=== PATIENT | male | born 1990 | race African-American/Black ===

== ENCOUNTER 2024-01-19 17:08 | Inpatient (IN) | payer OTHER, SELFPAY ==
[2024-01-19] VITALS (25 sets, daily range): BP systolic 117–211; BP diastolic 74–147; PULSE 58–111; RESP 12–30; TEMP 37.6; O2SAT 91–100; BMI 35.2
--- NOTE | 2024-01-19 17:09 | XRR_ITS ---
PROCEDURE INFORMATION: Exam: XR Chest Exam date and time: 01/19/2024 5:27 PM Age: 33 years old Clinical indication: Pain; Chest pressure; Additional info: Cp TECHNIQUE: Imaging protocol: Radiologic exam of the chest. Views: 1 view. COMPARISON: No relevant prior studies available. FINDINGS: Lungs: Unremarkable. No consolidation. Pleural spaces: Unremarkable. No pleural effusion. No pneumothorax. Heart/Mediastinum: Unremarkable. No cardiomegaly. Bones/joints: Unremarkable. XR/XR chest 1V portable [id number] IMPRESSION: No acute findings.
--- NOTE | 2024-01-19 17:09 | ECG_ITS ---
[facility] Test Date: 2024-01-19 Pat Name: Louis Brannon Department: Room: Gender: Male Top Polisher: : 1990 Requested By: Candelario Evans Order Number: [id number] Sarabjit MD: Neil Alexander M.D. Measurements Intervals [place] Rate: 81 P: 44 NE: 163 QRS: 66 QRSD: 90 T: 42 QT: 366 QTc: 427 Interpretive Statements SINUS RHYTHM ST ELEVATION, CONSIDER LATERAL INJURY [MARKED ST ELEVATION W/O NORMALLY INFLECTED T-WAVE IN I/aVL/V5/V6] ACUTE ND No previous ECG available for comparison Electronically Signed On 01-20-2024 9:09:49 CDT by Neil Alexander M.D. [email or web address])/store/[id number]
[2024-01-19] MEDS: clopidogrel 300 mg Tablet 600 MG PO (17:16)
[2024-01-19] MEDS: nitroglycerin 0.4 mg sublingual Tablet SUBLINGUAL (17:17)
[2024-01-19] MEDS: ondansetron 2 mg/ML SDV 2 mL 4 MG IVP (17:18)
[2024-01-19] MEDS: morphine 4 mg/mL SDV 1 mL IVP (17:18)
[2024-01-19] MEDS: heparin 5,000 unit/mL INJ 1 mL 4000 UNIT IVP (17:18)
--- NOTE | 2024-01-19 17:20 | ED_ITS ---
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 Rates his pain an 8 out of 10 Associated symptoms: Deny abdominal pain, dyspnea, fever(s), nausea or vomiting Review of Systems 2 Const: Denies: fever(s), chills, body aches or change in appetite ENMT: Denies: throat pain or dental pain Card: Reports: chest pain Resp: Denies: dyspnea GI: Denies: abdominal pain, nausea, vomiting or diarrhea Musc: Denies: neck pain or back pain Skin/Breast: Denies: rash Neuro: Denies: headache(s) Physical Exam 2 Const: COMMON NORMALS: patient oriented x3 GENERAL APPEARANCE: ill appearing and diaphoretic HENMT: COMMON NORMALS: normocephalic and atraumatic HEAD & SCALP: n ormocephalic and atraumatic Neck/C-Spine: COMMON NORMALS: full ROM and supple Chest: COMMONS NORMALS: normal inspection of the chest Resp: COMMON NORMALS: normal respiratory effort, No retractions, No use of accessory muscles and clear to auscultation bilaterally AUSCULTATION: clear to auscultation bilaterally Cardio: COMMON NORMALS: regular rate, regular rhythm and No murmurs present (Cardio) RATE: regular rate RHYTHM: regular rhythm Extremity: COMMON NORMALS: normal to inspection and full ROM Neuro: COMMON NORMALS: patient oriented x3, moves all extremities and no focal motor deficits Psych: COMMON NORMALS: mental status grossly normal, Normal thought process present and cooperative THOUGHT PROCESS: Normal thought process present Skin: COMMON NORMALS: no rashes or lesions noted and no wounds GENERAL SKIN EXAM: no rashes or lesions noted Course 2 Vital Signs: Vital signs: Vital Signs Pulse Rate 81 01/19/24 17:08 Respiratory Rate 23 H 01/19/24 17:18 Blood Pressure 211/147 01/19/24 17:08 Pulse Oximetry 98 01/19/24 17:18 Oxygen Delivery Me thod Room Air 01/19/24 17:08 MDM - Chest Pain Medical Decision Making Patient presents for chest pain EKG does show ST elevation consistent with a STEMI Fighting Vehicle Infantryman was alerted and will take patient to the Fighting Vehicle Infantryman. Medical Records I reviewed the patient's medical records. Lab Data I reviewed the patient's lab results. 01/19/24 17:05 01/19/24 17:05 All radiology interpretation(s) finalized by discharge Discharge Plan Discharge Patient Disposition: Admitted As Inpatient Clinical Impression: ST elevation myocardial infarction (STEMI) Condition: Stable Coding Level of Care Code ED Laundry Housekeeper for Jayy Dumont
[2024-01-19] MEDS: hyDRALAzine 20 mg/mL INJ 1 mL IVP (17:22)
[2024-01-19 17:23] LABS: Basophils # 0.1 10^3/uL (0.0-0.1); Basophils % 0.5 %; Eosinophils # 0.1 10^3/uL (0.0-0.8); Eosinophils % 0.6 %; Hematocrit 52.9 % (37-53); Lymphocytes # 6.5 10^3/uL (0.8-4.8); Lymphocytes % 26.7 %; Mean Corpuscular HGB Conc 34.2 g/dL (30-55); Mean Corpuscular Hemoglobin 29.9 pg (27-33); Mean Corpuscular Volume 87.4 fl (82-101); Mean Platelet Volume 10.3 fL (7.4-10.4); Monocytes # 1.9 10^3/uL (0.2-0.9); Monocytes % 7.8 %; Neutrophils # 15.26 10^3/uL (1.8-7.7); Neutrophils % 63.2 %; Nucleated Red Blood Cells % 0 %; Platelet Count 450 10^3/cmm (157-399); Red Blood Count 6.05 10^6/uL (3.85-5.65); Red Cell Distribution Width 12.2 % (12.1-15.1); White Blood Count 24.16 10^3/uL (3.29-11.43)
--- NOTE | 2024-01-19 17:36 | W.PM.OPSUD ---
Surgery/Procedure H&P Update DATE OF PROCEDURE: January 19, 2024
[2024-01-19 17:58] LABS: Alanine Aminotransferase 31 U/L (0-41); Albumin Level 5.4 g/dL (3.5-5.2); Alkaline Phosphatase 144 U/L (40-130); Anion Gap 30.8 (5-19); Aspartate Amino Transferase 37 U/L (0-40); Blood Urea Nitrogen 13 mg/dL (6-20); Calcium 11.7 mg/dL (8.5-10.5); Carbon Dioxide 15 mmol/L (22-29); Chloride 101 mmol/L (98-107); Creatinine Clr Calc Pharmacy 54.5067; Globulin 4.1 g/dL (1.3-4.6); Glomerular Filtration Rate 39.3 mL/min (90-130); Glucose 134 mg/dL (65-115); Osmolality Calculated 298 mOsm/kg (285-295); Potassium 3.8 mmol/L (3.5-5.1); Sodium 143 mmol/L (136-145); Total Bilirubin 0.6 mg/dL (0.15-1.2); Total Protein 9.5 g/dL (6.6-8.7)
[2024-01-19 17:59] LABS: Troponin(5th) Baseline 22 ng/L (0-15)
[2024-01-19 18:04] LABS: Slide Review Slide Review Perform
--- NOTE | 2024-01-19 18:06 | PC.NURSE ---
unable to obtain temperature on triage d/t acuity level/urgency of pt.
--- NOTE | 2024-01-19 18:24 | CTR_ITS ---
PROCEDURE INFORMATION: Exam: CTA Chest With Contrast Exam date and time: 01/19/2024 6:45 PM Age: 33 years old Clinical indication: Other: R/O dissection; Additional info: Cp R/O dissection TECHNIQUE: Imaging protocol: Computed tomographic angiography of the chest with contrast. Exam focused on the arteries. 3D rendering (Not supervised by radiologist): MIP and/or 3D reconstructed images were created by the technologist. Radiation optimization: All CT scans at this facility use at least one of these dose optimization techniques: automated exposure control; mA and/or kV adjustment per patient size (includes targeted exams where dose is matched to clinical indication); or iterative reconstruction. Contrast material: OMNI 350; Contrast volume: 100 ml; Contrast route: INTRAVENOUS (IV); COMPARISON: CR (CHEST, ) 01/19/2024 5:27 PM RADIATION DOSE METRICS: Total DLP (mGy-cm): 509 FINDINGS: Pulmonary arteries: Normal. No pulmonary emboli. Aorta: Unremarkable. No aortic aneurysm. No aortic dissection. Lungs: Unremarkable. No consolidation. No masses. Pleural spaces: Unremarkable. No pneumothorax. No pleural effusion. Heart: Unremarkable. No cardiomegaly. No pericardial effusion. Lymph nodes: Unremarkable. No enlarged lymph nodes. Bones/joints: Unremarkable. No acute fracture. Soft tissues: Unremarkable. CT/CT angio chest [id number] IMPRESSION: Negative for aortic dissection. No acute findings.
[2024-01-19] MEDS: iohexol 350 mg/mL 500 mL Btl (per mL) IV (18:56)
--- NOTE | 2024-01-19 19:03 | PM.HP ---
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 STEMI alert was called by EMS as patient EKG showed ST elevations in lateral leads. Transient elevation in anterior leads seen as well.Patient is going to cardiac Web Applications Administrator emergently. He is diaphoretic, have severe substernal chest pain. Review of Systems Const: Denies: fever(s), chills, body aches or change in appetite ENMT: Denies: throat pain or dental pain Card: Reports: chest pain Resp: Denies: dyspnea GI: Denies: abdominal pain, nausea, vomiting or diarrhea Musc: Denies: neck pain or back pain Skin/Breast: Denies: rash Neuro: Denies: headache(s) Medications/Allergies Allergies Allergy/AdvReac Type Severity Reaction Status Date / Time No Known Allergies Allergy Verified 01/19/24 17:25 Vitals/I&O/Wt Last Vital Signs Pulse 107 H 01/19/24 18:07 Resp 22 H 01/19/24 18:07 BP 183/123 01/19/24 18:07 Pulse Ox 98 01/19/24 18:07 O2 Del Method Nasal Cannula 01/19/24 17:29 O2 Flow Rate 2 01/19/24 17:29 Weight last 48 hrs Weight 240 lb Physical Exam Narrative: GENERAL: Patient is alert, awake and oriented x3. [] NECK: No jugular vein distension. [] HEENT: No cyanosis. No icterus. No pallor. [] HEART: Tachycardic, Regular S1 and S2. No murmur, rub or gallop. [] LUNGS: Clear to auscultate bilaterally. [] CENTRAL NERVOUS SYSTEM: Grossly nonfocal. [] EXTREMITIES: Lower extremities with 1+ edema bilaterally. Data 01/19/24 17:05 01/19/24 17:05 A&P Assessment and plan (1) ST elevation myocardial infarction (STEMI): (2) Hypertensive emergency: Plan Patient's presentation is concerning for ST elevation IL. We will emergently take him to cardiac Web Applications Administrator. Given aspirin, Plavix and heparin bolus. IV hydralazine given as blood pressure is over 200 mmHg If no significant coronary artery disease is found, next step will be to obtain emergent CTA. This will be to rule out aortic dissection. Thank you for involving us with care of this patient. We will continue to follow. Please call with questions. Attestations Medical Necessity Statement*: Care expected to cross 2 midnights. Patient has presented with hypertensive emergency with this elevation IL. Emergently going to cardiac Web Applications Administrator. Coding Level of Care Code Acute Code for [facility] Diagnoses ST elevation myocardial infarction (STEMI) I21.3 Hypertensive emergency I16.1
--- NOTE | 2024-01-19 19:09 | ECG_ITS ---
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 Measurements Intervals [place] Rate: 62 P: 30 ND: 166 QRS: 59 QRSD: 93 T: 18 QT: 409 QTc: 416 Interpretive Statements SINUS RHYTHM WITH SINUS ARRHYTHMIA ST ELEVATION, CONSIDER ANTEROLATERAL INJURY [MARKED ST ELEVATION W/O NORMALLY INFLECTED T-WAVE IN V3-V6] ACUTE CO Compared to ECG 01/19/2024 17:11:27 No significant changes Electronically Signed On 01-20-2024 9:10:35 CDT by Neil Alexander M.D. [id number]
--- NOTE | 2024-01-19 19:09 | PC.NURSE ---
Nausea Patient complaining of nausea. Dr. Alexander notified; order received for 2 mg zofran IVP once.
--- NOTE | 2024-01-19 19:11 | USCV_ITS ---
Louis Brannon Age: 33 Gender: M : 1990 Exam Date: 01/19/2024 22:18 Ordering Phys: Neil Alexander M.D ([email or web address]) Technologist: AXEL Exam Location: [facility] – [place] Indication: chest pain / assess LV function s/p STEMI s/p cardiac catheterization. BP: 211 / 147 HR: 64 Rhythm: Sinus Technical Quality: Adequate MEASUREMENTS (Male / Female) Normal Values 2D ECHO LV Diastolic Diameter PLAX 4.2 cm 4.2 - 5.9 / 3.9 - 5.3 cm IVS Diastolic Thickness 1.8 cm 0.6 - 1.0 / 0.6 - 0.9 cm IVS Systolic Thickness 1.7 cm LVPW Diastolic Thickness 1.5 cm 0.6 - 1.0 / 0.6 - 0.9 cm LVPW Systolic Thickness 2.1 cm LVOT Diameter 2.1 cm LV Ejection Fraction 2D Teich 63.2 % LV Ejection Fraction MOD 4C 70.5 % LV Ejection Fraction MOD 2C 59.2 % LV Ejection Fraction 2C AL 64.7 % LA Diameter 4.4 cm Aorta at Sinotubular Diameter 2.4 cm IVC Diameter 1.7 cm M-MODE LA Ao Ratio MM 1.1 AV Cusp Separation MM 2.1 cm DOPPLER AV Peak Velocity 140.0 cm/s LVOT Peak Velocity 110.0 cm/s AV Area Cont Eq vti 3.3 cm squared AV Area Cont Eq pk 2.7 cm squared MV Peak Velocity 81.0 cm/s MV Area PHT 3.7 cm squared Mitral E to A Ratio 0.9 TV Peak E Velocity 44.0 cm/s PV Peak Velocity 168.0 cm/s FINDINGS Left Ventricle Left ventricle is normal in size. LV systolic function is normal with EF 55 to 60%. No regional wall motion abnormalities are seen. In some views, apical wall appears dyskinetic however overall LV function is normal Right Ventricle Normal in size and function Right Atrium Normal in size Left Atrium Normal in size Mitral Valve Structurally normal mitral valve. Aortic Valve Structurally normal aortic valve. No significant stenosis or regurgitation. Tricuspid Valve Mild tricuspid regurgitation. Insufficient TR jet to calculate RVSP. Pulmonic Valve Not well visualized Pericardium Normal. Possible pleural effusion is seen. Aorta Normal in size IVC Appears to be normal CONCLUSIONS LV systolic function is normal with EF of 55-60% Mild tricuspid regurgitation Possible pleural effusion seen No comparison studies are available. Neil Alexander MD (Electronically Signed) Final Date: 20 January 2024 09:38 S
--- NOTE | 2024-01-19 19:23 | PM.CONSULT ---
Providers/Reason For Consult Consulting Physician/Specialty*: Dr. Alexander, interventional cardiology Reason for Consult*: Medical management Attending Physician: Neil Alexander M.D History of Present Illness History of Present Illness Louis Brannon is a 33 year old male with a past medical history significant for tobacco use disorder who presented as a code STEMI. Patient reports he was in his usual state of health until today around noon. 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 He notes that he was sweating while loading the truck but did not feel overheated. Reports that he was drinking water as well. Following this, he developed severe centralized chest pain. He rated the pain initially 10 out of 10. Denied any radiation. Denies any alleviating or aggravating factors. Initial EKG was concerning for STEMI. Patient was taken to the Shingle Shearing Machine Operator which was negative for culprit lesion. This was followed by a CT angiogram to evaluate for aortic dissection showed no acute findings. Upon presentation was also found to have severely elevated blood pressure. He is currently on a nitro drip. Denies a known history of hypertension. Labs revealed leukocytosis to 24.16. He endorses labile temperature sensation. Denies other infectious symptoms. Labs further revealed metabolic acidosis with bicarb of 15, elevated creatinine to 2.3, mild hypercalcemia at 11.7, elevated CK to 595, and elevated troponins. Patient denies known history of kidney disease. He reports his last labs were probably about a year ago. He states that he is a and typically has his labs done every 6 months but did miss his last lab check to being on the road. He denies any chronic medical conditions. Takes no prescription medications. Denies illicit drug use. Review of Systems Narrative: A complete review of systems was obtained and is negative except as stated in HPI. Medications/Allergies Allergies Allergy/AdvReac Type Severity Reaction Status Date / Time No Known Allergies Allergy Verified 01/19/24 17:25 PFSH Acute PFSH: Medical History (Updated 01/19/24 @ 21:11 by Thang Ceja MD) Tobacco use disorder Surgical History (Updated 01/19/24 @ 21:03 by Thang Ceja MD) No pertinent past surgical history Family History (Updated 01/19/24 @ 21:03 by Thang Ceja MD) Mother CAD (coronary artery disease) Social History (Updated 01/19/24 @ 21:04 by Thang Ceja MD) Smoking and tobacco/nicotine status: current every day tobacco/nicotine user Alcohol intake: never Substance/Drug Use: never Additional social history: 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 Lives in [place]. Holiday. Vitals/I&O/Wt Last Vital Signs Pulse 107 H 01/19/24 18:07 Resp 22 H 01/19/24 18:07 BP 183/123 01/19/24 18:07 Pulse Ox 98 01/19/24 18:07 O2 Del Method Nasal Cannula 01/19/24 17:29 O2 Flow Rate 2 01/19/24 17:29 Weight last 48 hrs Weight 108.862 kg Physical Exam Narrative: General: Patient is awake. In moderate distress. Head: Normocephalic. Atraumatic. EOM intact. Neck: No JVD. Cardiovascular: RRR. No gallops. No murmurs. No peripheral edema. Lungs: Clear to auscultation, no use of accessory muscles, no crackles or wheezes. Skin: No jaundice. No rashes. Abdomen: Normal bowel sounds, abdomen soft and nontender. Genito Urinary: Genital exam not performed since complaints not related. Rectal: Rectal exam not performed since no symptoms indicated blood loss. Extremities: No cyanosis or clubbing. Musculoskeletal: No swollen or erythematous joints. Neurological: Moves all 4 extremities. No myoclonus. Data 01/19/24 17:05 01/19/24 17:05 A&P Assessment and plan (1) Hypertensive emergency: Patient currently on nitro drip Plan to start oral antihypertensive Monitor blood pressure closely Control pain Check UDS (2) Elevated troponin: Presented as code STEMI Status postcardiac catheterization via right groin without culprit lesion CT angio negative for aortic dissection Patient has persistent chest pain On nitro drip Received morphine without significant response Trial of hydromorphone (3) Elevated serum creatinine: Patient denies known kidney disease Suspect component of dehydration Start aggressive IV fluid resuscitation Renally dose medications Strict I&Os Repeat labs in a.m. (4) Metabolic acidosis: HAGMA with bicarb of 15, lactate 2.5, AG 30.8 Aggressive IV fluid resuscitation as noted above Repeat labs in a.m. (5) Leukocytosis: Suspect stress-induced Evaluate for source of infection Urinalysis not consistent with infection Chest imaging negative for signs of infection Check procalcitonin Obtain blood cultures (6) Hypercalcemia: Start IVF Repeat labs in AM (7) Tobacco use disorder: Would benefit from cessation Plan Thank you for this consultation. Consult Attestations Medical Necessity Statement: Per Primary Coding Level of Care Code Acute Code for [facility] Diagnoses Hypertensive emergency I16.1 Elevated troponin R79.89 Elevated serum creatinine R79.89 Metabolic acidosis E87.20 Leukocytosis D72.829 Hypercalcemia E83.52 Tobacco use disorder F17.200
[2024-01-19] MEDS: ondansetron 2 mg/ML SDV 2 mL IVP (19:34)
--- NOTE | 2024-01-19 19:34 | PM.MISC ---
Miscellaneous Note Purpose of Documentation: Brief procedure/event note Note: No critical CAD seen on angiogram. Patient was taken emergently to CTA to rule out aortic dissection. None found. Likely his presentation is secondary to hypertensive emergency. He has been started on nitro drip and blood pressures have are improving. In the meanwhile labs have come back and his creatinine is 2.3 and WBC count is 24,000. We will consult medicine team to assist with medical management. Appreciate recommendations. We will obtain echocardiogram.
--- NOTE | 2024-01-19 19:45 | PC.NURSE ---
Sheath Order received from Dr. Alexander to leave sheath in over night for arterial line use.
[2024-01-19 19:49] LABS: Bilirubin Urine Negative (Negative); Blood Urine Negative (Negative); Glucose Urine UA Negative (Normal); Ketones Urine 1+ (Negative); Leukocyte Esterase Urine Negative (Negative); Nitrate Urine Negative (Negative); Protein Urine 1+ (Negative); Urine Appearance Clear (CLEAR); Urine Color Yellow (Yellow); pH Urine 5.5 (5-7)
[2024-01-19 19:51] LABS: Bacteria Urine None Seen /hpf; Hyaline Casts Urine 10.73 /lpf; Squamous Epithelial Cell Urine 0-5 /hpf (0-5); WBC Urine 0-5 /hpf (0-5)
[2024-01-19 19:56] LABS: Amphetamines Screen Urine Negative (Negative); Barbiturates Screen Urine Negative (Negative); Benzodiazepines Screen Urine Negative (Negative); Cocaine Screen Urine Negative (Negative); Opiate Screen Urine Positive (Negative); PCP Screen Urine Negative (Negative); THC Screen Urine Positive (Negative)
[2024-01-19] MEDS: nitroglycerin drip 50 MG/250 ML PREMIX IV (19:58)
--- NOTE | 2024-01-19 19:59 | PC.NURSE ---
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 Pt complaining of chest pain, Dr Coats at bedside, instructed to increase nitro drip 60 mcg/min. Scanned nitro and adjusted rate in MAR to reflect current rate.
[2024-01-19 20:02] LABS: Creatine Phosphokinase 595 U/L (39-308)
[2024-01-19 20:03] LABS: Procalcitonin 0.08 ng/mL (0-0.5)
[2024-01-19 20:04] LABS: Troponin 5 2HR 109.4 ng/L (0-15); Troponin 5 2HR Delta 87.4 ABS# (0-10)
[2024-01-19 20:06] LABS: Specific Gravity, Urine 1.073 (1.005-1.030)
[2024-01-19 20:10] LABS: Add Urine Culture? No; Calcium Oxalate Crystals Urine >100 /hpf
[2024-01-19] MEDS: sodium chloride 0.9% 1,000 ML 200 ML IV (20:23)
[2024-01-19 20:59] LABS: Lactate (Lactic Acid level) 2.5 mmol/L (0.5-2.2)
[2024-01-19] MEDS: HYDROmorphone 1 mg/mL INJ 1 mL IVP (21:17)
--- NOTE | 2024-01-19 23:42 | ECG_ITS ---
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 Measurements Intervals [place] Rate: 61 P: 27 GA: 153 QRS: 64 QRSD: 90 T: 35 QT: 396 QTc: 402 Interpretive Statements SINUS RHYTHM NONSPECIFIC ST & T-WAVE ABNORMALITY Compared to ECG 01/19/2024 20:16:07 T-wave abnormality now present Sinus arrhythmia no longer present ST (T wave) deviation no longer present Myocardial infarct finding no longer present Electronically Signed On 01-20-2024 9:10:14 CDT by Neil Alexander M.D. [id number]
[2024-01-20] VITALS (60 sets, daily range): BP systolic 91–197; BP diastolic 61–140; PULSE 55–103; RESP 12–24; TEMP 36.2–37.9; O2SAT 94–100; BMI 35.6
[2024-01-20] MEDS: temazepam 15 mg Capsule PO ×2 (01:09→22:37)
[2024-01-20] MEDS: sodium chloride 0.9% 1,000 ML 200 ML IV ×2 (01:10→06:35)
[2024-01-20] MEDS: ondansetron 2 mg/ML SDV 2 mL 4 MG IVP ×3 (02:37→07:35)
[2024-01-20] MEDS: HYDROmorphone 1 mg/mL INJ 1 mL IVP ×2 (02:38→07:26)
[2024-01-20 04:18] LABS: Basophils # 0.1 10^3/uL (0.0-0.1); Basophils % 0.3 %; Hematocrit 44.8 % (37-53); Lymphocytes # 2.7 10^3/uL (0.8-4.8); Lymphocytes % 11.9 %; Mean Corpuscular Hemoglobin 29.2 pg (27-33); Mean Corpuscular Volume 88.4 fl (82-101); Mean Platelet Volume 9.9 fL (7.4-10.4); Monocytes # 1.7 10^3/uL (0.2-0.9); Monocytes % 7.4 %; Neutrophils # 18.11 10^3/uL (1.8-7.7); Neutrophils % 79.9 %; Nucleated Red Blood Cells % 0 %; Platelet Count 363 10^3/cmm (157-399); Red Blood Count 5.07 10^6/uL (3.85-5.65); Red Cell Distribution Width 12.5 % (12.1-15.1); White Blood Count 22.65 10^3/uL (3.29-11.43)
[2024-01-20 04:38] LABS: Anion Gap 16.6 (5-19); Blood Urea Nitrogen 11 mg/dL (6-20); Calcium 8.9 mg/dL (8.5-10.5); Carbon Dioxide 22 mmol/L (22-29); Chloride 106 mmol/L (98-107); Creatinine Clr Calc Pharmacy 96.1297; Glucose 135 mg/dL (65-115); Osmolality Calculated 293 mOsm/kg (285-295); Potassium 3.6 mmol/L (3.5-5.1); Sodium 141 mmol/L (136-145)
[2024-01-20] MEDS: nitroglycerin drip 50 MG/250 ML PREMIX 19.5 MG IV (07:03)
--- NOTE | 2024-01-20 08:00 | PC.NURSE ---
coffee ground emesis x1, c/o sever abdominal pain with chest pressure, meds per AUG, Dr. Alexander came to bedside gave v.o. orders for metoprolol and to increase amlodipine. Hospitalist to follow
[2024-01-20] MEDS: metoprolol tartrate 50 mg Tablet PO ×2 (08:06→20:02)
[2024-01-20] MEDS: amlodipine 5 mg Tablet 10 MG PO (08:06)
--- NOTE | 2024-01-20 08:51 | CT_ITS ---
WS: [id number] CT ABDOMEN PELVIS TECHNIQUE: Noncontrast CT of the abdomen and pelvis with coronal and sagittal reformatted images. CLINICAL INFORMATION: cheikh COMPARISON: None. DLP: 1016.[address] scans at [facility] use at least one of these dose optimization techniques: automated e xposure control; mA and/or kV adjustment per patient size (includes targeted exams where dose is matc hed to clinical indication); or iterative reconstruction. FINDINGS: Vicarious excretion of contrast in the gallbladder from recent PE study. Residual contrast in the patricia al collecting systems from earlier PE study. Small esophageal hiatal hernia. Air-fluid level in the stomach. Subsegmental atelectasis in the lung bases. Numerous tiny low-attenuation lesions throughout the liver most likely hepatic cysts with some too small to characterize. No hydronephrosis in either kidney. Ureters appear decompressed. Contrast within the bladder. No evid ence of acute renal obstruction. Normal sigmoid colon. Normal appendix in the RIGHT lower quadrant. Tiny fat-containing umbilical huyen ia. Noncontrast aorta appears normal. Adrenal glands are normal. Noncontrast pancreas appears normal. CT/CT abdomen pelvis wo con [id number] IMPRESSION: 1. No hydronephrosis in either kidney. 2. Residual contrast in the renal collecting systems and bladder from recent c ontrast administration. 3. Small esophageal hiatal hernia with air-fluid level in the stomach. 4. Numerous tiny low-attenuation hepatic lesions compatible with cysts. Some o f these are too small to definitively characterize.
--- NOTE | 2024-01-20 09:59 | P.PN_ITS ---
Subjective 2 Subjective: Patient's presentation consistent with hypertensive emergency. This morning denies chest pain. EKG changes have resolved today. Echo shows normal LV systolic function. In some views very distal apex appears dyskinetic. Troponins increased however consistent with demand ischemia. No significant CAD noted. Vitals/I&O/Wt Last Vital Signs Temp 98.9 F 01/20/24 08:15 Pulse 74 01/20/24 08:15 Resp 17 01/20/24 08:15 BP 151/91 01/20/24 08:15 Pulse Ox 99 01/20/24 08:15 O2 Del Method Room Air 01/20/24 08:12 O2 Flow Rate 2 01/19/24 17:29 01/19/24 01/20/24 01/20/24 22:59 06:59 14:59 Intake Total 500 / 500 2696.667 / 3196.667 258.775 / 258.775 Output Total 400 / 400 1000 / 1400 Balance 100 / 100 1696.667 / 1796.667 258.775 / 258.775 Weight last 48 hrs Weight 241 lb 6.4 oz Weight 238 lb 8 oz Weight 240 lb Physical Exam 2 Narrative: GENERAL: Patient is alert, awake and oriented x3. [] NECK: No jugular vein distension. [] HEENT: No cyanosis. No icterus. No pallor. [] HEART: Regular S1 and S2. No murmur, rub or gallop. [] LUNGS: Clear to auscultate bilaterally. [] CENTRAL NERVOUS SYSTEM: Grossly nonfocal. [] EXTREMITIES: Lower extremities with 1+ edema bilaterally. Data 01/20/24 04:02 01/20/24 04:02 Micro: Microbiology 01/19/24 20:24 Blood Culture - Preliminary Blood SPECIMEN COLLECTED 01/19/24 20:18 Blood Culture - Preliminary Blood SPECIMEN COLLECTED A&P Assessment and plan (1) Hypertensive emergency: (2) Tobacco use disorder: (3) HANNAH (acute kidney injury): Plan Patient had unusual presentation of hypertensive emergency with significant ST elevations. He was emergently taken to cardiac Superintendent however no critical CAD seen. CTA was performed to rule out aortic dissection in setting of very high blood pressure and severe chest pain. No aortic dissection seen. With nitro drip and p.o. medications along with IV hydralazine, blood pressure has improved. His symptoms of chest pressure have improved. EKG changes have resolved. Echo shows normal LV systolic function with the very distal apex showing dyskinesis in some views. Troponin elevation was secondary to hypertensive emergency and demand ischemia. He had HANNAH. With IV fluid administration, creatinine has improved significantly today and is 1.3. We will increase amlodipine to 10 mg. Will start metoprolol 50 mg twice daily. Continue with nitro drip for now. Will add p.o. hydralazine if blood pressure stays elevated. Patient had an episode of coffee-ground emesis. Possible blood seen. Medicine team is on board for medical management.Appreciate recommendations. Attestations 2 Medical Necessity Statement*: Care expected to cross 2 midnights. Patient has presented with hypertensive emergency and medications being adjusted to improve blood pressure. Coding Level of Care Code Acute Code for [facility] Diagnoses Hypertensive emergency I16.1 Tobacco use disorder F17.200 HANNAH (acute kidney injury) N17.9
[2024-01-20] MEDS: pantoprazole 40 mg SDV IVP ×2 (10:29→22:36)
[2024-01-20] MEDS: sucralfate 1 gm/10 mL Oral Liq UDC PO ×3 (10:30→20:02)
[2024-01-20] MEDS: hyDRALAzine 20 mg/mL INJ 1 mL IVP (10:30)
[2024-01-20] MEDS: fentaNYL 50 mcg/mL INJ 2mL IVP (10:41)
--- NOTE | 2024-01-20 11:16 | PC.NURSE ---
R groin sheath removed
--- NOTE | 2024-01-20 11:23 | PM.CONSULT ---
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 He had hematemesis. He is having more heartburn symptoms but on no medication for this. He has not had history of PUD. He smokes and occasionally drinks alcohol. He is not on steroids or take NSAID daily. He was just given aspirin and plavix but doesn't need this anymore since his cardiac cath was negative. Review of Systems Narrative: Constitutional: denies rigors, singnificant weight gain, increased appetite HEENT: denies chronic cough, blurry vision, excessive tearing, eye pain, flashing lights, odynophagia, painful mastication, change in voice, change in taste, chronic sore throat, hypersalivation Heart: denies racing heart, palpitations, othropnea, PND Lungs: denies hemoptysis, pain with deep inspiration, chronic bronchitis GI: denies hematemesis, hematochezia, dysphagia, tenesmus : denies polyuria, hematuria, painful micturation Musculoskeletal: denies hemarthrosis, Muscle wasting, change in amubation Neuro: denies new onset syncope, dysesthesia, dysequilibrium, ptosis eyelid or face SKin: denies new onset hyperalgia, new rash new cyanosis Endocrine: denies new polyuria, polydipsia, polyphagia, heat intolerance, excessive energy Hem/Onc: denies new petechiae, swollen glands, new excessive epstaxis Psych: denies racing thought Medications/Allergies Home Medications Medication Instructions Recorded Confirmed Last Taken Type No Known Home Medications 01/20/24 01/20/24 Unknown History Allergies Allergy/AdvReac Type Severity Reaction Status Date / Time No Known Allergies Allergy Verified 01/19/24 17:25 Current Medications Generic Name Dose Route Start Last Admin Trade Name Freq PRN Reason Stop Dose Admin Amlodipine Besylate 10 mg 01/20/24 09:00 01/20/24 08:06 Amlodipine 5 Mg Tablet PO 10 mg BID MARGARET Administration Fentanyl 50 mcg 01/19/24 19:05 01/20/24 10:41 Fentanyl 50 Mcg/Ml Inj 2ml IVP 50 mcg PRN PRN Administration Pain Hydromorphone HCl 1 mg 01/20/24 00:24 01/20/24 07:26 Hydromorphone 1 Mg/Ml Inj 1 Ml IVP 1 mg Q4H PRN Administration PAIN Sodium Chloride 1,000 mls @ 100 mls/hr 01/19/24 19:15 01/20/24 10:42 Sodium Chloride 0.9% IV 100 mls/hr .Q10H MARGARET Infusion Metoprolol Tartrate 50 mg 01/20/24 09:00 01/20/24 08:06 Metoprolol Tartrate 50 Mg Tablet PO 50 mg BID@0900,2100 MARGARET Administration Ondansetron HCl 4 mg 01/20/24 00:25 01/20/24 07:35 Ondansetron 2 Mg/Ml Sdv 2 Ml IVP 4 mg Q8H PRN Administration NAUSEA AND VOMITING Pantoprazole Sodium 40 mg 01/20/24 10:15 01/20/24 10:29 Pantoprazole 40 Mg Sdv IVP 40 mg Q12H MARGARET Administration Sucralfate 1 gm 01/20/24 11:00 01/20/24 10:30 Sucralfate 1 Gm/10 Ml Oral Liq Udc PO 1 gm AC&BEDTIME MARGARET Administration Temazepam 15 mg 01/19/24 19:05 01/20/24 01:09 Temazepam 15 Mg Capsule PO 15 mg BEDTIME PRN Administration INSOMNIA PFSH Acute PFSH: Medical History (Updated 01/20/24 @ 11:26 by Shawn Corbett MD) Tobacco use disorder Surgical History (Updated 01/19/24 @ 21:03 by Thang Ceja MD) No pertinent past surgical history Family History (Updated 01/19/24 @ 21:03 by Thang Ceja MD) Mother CAD (coronary artery disease) Social History (Updated 01/19/24 @ 21:04 by Thang Ceja MD) Smoking and tobacco/nicotine status: current every day tobacco/nicotine user Alcohol intake: never Substance/Drug Use: never Additional social history: 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 Lives in [place]. Vitals/I&O/Wt Last Vital Signs Temp 98.9 F 01/20/24 08:15 Pulse 90 01/20/24 11:15 Resp 18 01/20/24 11:15 BP 126/82 01/20/24 11:15 Pulse Ox 98 01/20/24 11:15 O2 Del Method Room Air 01/20/24 08:12 O2 Flow Rate 2 01/19/24 17:29 01/19/24 01/20/24 01/20/24 22:59 06:59 14:59 Intake Total 500 / 500 2696.667 / 3196.667 1082.108 / 1082.108 Output Total 400 / 400 1000 / 1400 Balance 100 / 100 1696.667 / 0915.184 8995.108 / 1082.108 Weight last 48 hrs Weight 241 lb 6.4 oz Weight 238 lb 8 oz Weight 240 lb Physical Exam Narrative: Patient is a well developed well nourished and in NAD and is afebrile with vitals stable and is answering questions appropriately with a normal affect and is alert and oriented x3 HEENT: normocephalic with normal external ears and nonicteric, oral mucosa moist and dentition normal for age, trachea midline with no large masses visualized Heart: RRR, no gallops murmurs or rubs, normal PMI with no thrills Lungs: normal excursions, no loud audible wheezing, no subcutaneous emphysema Abdomen: nondistended, no gross hepatosplenomegaly, no masses, no rigidity or rebound, no loud borborygmi Neuro: nonfocal, DIAZ, grossly normal sensation Musculoskeletal: good muscle tone, no fasciculations, normal gait Skin: pink warm and dry with no rashes or ecchymosis Vascular: good radial pulses, no ulceration, less than 2 second capillary refill in hand : deferred Data 01/20/24 04:02 01/20/24 04:02 Micro: Microbiology 01/19/24 20:24 Blood Culture - Preliminary Blood SPECIMEN COLLECTED 01/19/24 20:18 Blood Culture - Preliminary Blood SPECIMEN COLLECTED A&P Assessment and plan (1) Hematemesis: Plan Patient has agreed to EGD with control of bleeding. He understands risks, benefits and alternatives. Risks include bleeding, infection, cardiopulmonary problems, perforation, aspiration, missed lesion, more surgery. Coding Level of Care Code 80041 Diagnoses Hematemesis K92.0
--- NOTE | 2024-01-20 11:28 | P.ANESASSM_ITS ---
Documented by User: Blanca Cedillo 01/20/24 12:51 Pre-Anesthetic Assessment Height/Weight: Height 1.75 m Weight 109.497 kg Temp Pulse Resp BP Pulse Ox O2 Del Method O2 Flow Rate 98.9 F 90 18 126/82 98 Room Air 2 01/20/24 08:15 01/20/24 11:15 01/20/24 11:15 01/20/24 11:15 01/20/24 11:15 01/20/24 08:12 01/19/24 17:29 Operation Date: 01/19/24 17:45 Proposed Procedures p Cardiac Catheterization(Not Applicable) - Neil Alexander M.D CV/HEM Hypertension (hypertensive emergency) and Myocardial Infarction (Negative cardiac cath) CONCLUSIONS LV systolic function is normal with EF of 55-60% Mild tricuspid regurgitation Possible pleural effusion seen No comparison studies are available. HANNAH GI episode of hematemsis Musc/skel Elevated CK, metabolic acidosis Anesthetic Plan ASA status: 4 Anesthesia: General Risk of > 500 ml blood loss (7ml/kg in children): No Medications/Allergies Home Medications Medication Instructions Recorded Confirmed Last Taken Type No Known Home Medications 01/20/24 01/20/24 Unknown History Allergies Allergy/AdvReac Type Severity Reaction Status Date / Time No Known Allergies Allergy Verified 01/19/24 17:25 Current Medications Generic Name Dose Route Start Last Admin Trade Name Freq PRN Reason Stop Dose Admin Amlodipine Besylate 10 mg 01/20/24 09:00 01/20/24 08:06 Amlodipine 5 Mg Tablet PO 10 mg BID MARGARET Administration Fentanyl 50 mcg 01/19/24 19:05 01/20/24 10:41 Fentanyl 50 Mcg/Ml Inj 2ml IVP 50 mcg PRN PRN Administration Pain Hydromorphone HCl 1 mg 01/20/24 00:24 01/20/24 07:26 Hydromorphone 1 Mg/Ml Inj 1 Ml IVP 1 mg Q4H PRN Administration PAIN Sodium Chloride 1,000 mls @ 100 mls/hr 01/19/24 19:15 01/20/24 10:42 Sodium Chloride 0.9% IV 100 mls/hr .Q10H MARGARET Infusion Metoprolol Tartrate 50 mg 01/20/24 09:00 01/20/24 08:06 Metoprolol Tartrate 50 Mg Tablet PO 50 mg BID@0900,2100 MARGARET Administration Ondansetron HCl 4 mg 01/20/24 00:25 01/20/24 07:35 Ondansetron 2 Mg/Ml Sdv 2 Ml IVP 4 mg Q8H PRN Administration NAUSEA AND VOMITING Pantoprazole Sodium 40 mg 01/20/24 10:15 01/20/24 10:29 Pantoprazole 40 Mg Sdv IVP 40 mg Q12H MARGARET Administration Sucralfate 1 gm 01/20/24 11:00 01/20/24 10:30 Sucralfate 1 Gm/10 Ml Oral Liq Udc PO 1 gm AC&BEDTIME MARGARET Administration Temazepam 15 mg 01/19/24 19:05 01/20/24 01:09 Temazepam 15 Mg Capsule PO 15 mg BEDTIME PRN Administration INSOMNIA PFSH Anesthesia Medical History (Updated 01/20/24 @ 11:26 by Shawn Corbett MD) Tobacco use disorder Surgical History (Updated 01/19/24 @ 21:03 by Thang Ceja MD) No pertinent past surgical history Family History (Updated 01/19/24 @ 21:03 by Thang Ceja MD) Mother CAD (coronary artery disease) Social History (Updated 01/19/24 @ 21:04 by Thang Ceja MD) Smoking and tobacco/nicotine status: current every day tobacco/nicotine user Alcohol intake: never Substance/Drug Use: never 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 . Data Anesthesia 01/20/24 04:02 01/20/24 04:02 Short CBC 01/19/24 01/20/24 Range/Units 17:05 04:02 WBC 24.16 H 22.65 H (3.29-11.43) 10^3/uL Hgb 18.10 H 14.80 (11.27-16.99) g/dL Hct 52.9 44.8 (37-53) % MCV 87.4 88.4 (82-101) fl Plt Count 450 H 363 (157-399) 10^3/cmm Neut % (Auto) 63.2 79.9 % Neut # (Auto) 15.26 H 18.11 H (1.8-7.7) 10^3/uL BMP 01/19/24 01/20/24 17:05 04:02 Sodium 143 141 Potassium 3.8 3.6 Chloride 101 106 Carbon Dioxide 15 L 22 BUN 13 11 Creatinine 2.3 H 1.3 H Glucose 134 H 135 H Calcium 11.7 H 8.9 Cardiac Enzymes 01/19/24 01/19/24 01/19/24 Range/Units 17:05 19:18 23:18 Creatine Kinase 595 H* (39-308) U/L Troponin T Baseline 22 H (0-15) ng/L Troponin T 120 Minute 109.4 H (0-15) ng/L Delta Troponin T 87.4 H* (0-10) ABS# Troponin T Hi Sens 6Hr 506.0 H (0-15) ng/L Troponin T Hi Sens 6Hr Delta 484.0 H* (0-12) ng/L Liver Function 01/19/24 Range/Units 17:05 Total Bilirubin 0.6 (0.15-1.2) mg/dL AST 37 (0-40) U/L ALT 31 (0-41) U/L Alkaline Phosphatase 144 H (40-130) U/L Albumin 5.4 H (3.5-5.2) g/dL Urine 01/19/24 Range/Units 19:40 Urine Color Yellow (Yellow) Urine Appearance Clear (CLEAR) Urine pH 5.5 (5-7) Ur Specific [place]bilt 1.073 H (1.005-1.030) Urine Protein 1+ A (Negative) Urine Glucose (UA) Negative (Normal) Urine Ketones 1+ H (Negative) Urine Nitrate Negative (Negative) Urine Bilirubin Negative (Negative) Ur Leukocyte Esterase Negative (Negative) Urine RBC 11-20 H (0-2) /hpf Urine WBC 0-5 (0-5) /hpf Coags 01/19/24 19:18 C-Reactive Protein 9.0 H Microbiology 01/19/24 20:24 Blood Culture - Preliminary Blood SPECIMEN COLLECTED 01/19/24 20:18 Blood Culture - Preliminary Blood SPECIMEN COLLECTED Cardiac Studies: 2 Echocardiogram 01/19/24 Documented by User: Tammy Salazar CRNA 01/20/24 11:51 Pre-Anesthetic Assessment Familial anesthetic complications: PONV Was Beta Tino taken within 24 hours: N/A Was Clonidine taken within 24 hours: N/A Last intake: > 8 hrs Social No alcohol and No tobacco Exam alert, oriented x 3, clear to auscultation bilaterally and regular rate & rhythm Airway Mallampati: Class III Dentition: full Medications/Allergies Home Medications Medication Instructions Recorded Confirmed Last Taken Type No Known Home Medications 01/20/24 01/20/24 Unknown History Allergies Allergy/AdvReac Type Severity Reaction Status Date / Time No Known Allergies Allergy Verified 01/19/24 17:25 [facility] Anesthesia Medical History (Updated 01/20/24 @ 11:26 by Shawn Corbett MD) Tobacco use disorder Surgical History (Updated 01/19/24 @ 21:03 by Thang Ceja MD) No pertinent past surgical history Family History (Updated 01/19/24 @ 21:03 by Thang Ceja MD) Mother CAD (coronary artery disease) Social History (Updated 01/19/24 @ 21:04 by Thang Ceja MD) Smoking and tobacco/nicotine status: current every day tobacco/nicotine user Alcohol intake: never Substance/Drug Use: never 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 . Data Anesthesia 01/20/24 04:02 01/20/24 04:02 Cardiac Studies: 2 Echocardiogram 01/19/24
--- NOTE | 2024-01-20 11:58 | PC.NURSE ---
Off unit with ACCOUNTS SUPERVISOR and Erlinda to GI lab, this nurse and staff observed R groin site prior to leaving
--- NOTE | 2024-01-20 12:50 | P.PN_ITS ---
Subjective 2 Subjective: I requested general surgery for endoscopy today as patient was n.p.o. His leukocytosis and creatinine improving with IV fluid hydration CT abdomen pelvis did not show any obstructive stone crystal calcium oxalate noted in urine Marijuana positive No active chest pain Patient is stating that every time he eats he gets cringing pain below his sternum Metabolic acidosis improved Nonobstructive coronaries Hypertensive emergency: Improved Vitals/I&O/Wt Last Vital Signs Temp 98.9 F 01/20/24 08:15 Pulse 84 01/20/24 11:45 Resp 18 01/20/24 11:45 BP 126/82 01/20/24 11:45 Pulse Ox 98 01/20/24 11:45 O2 Del Method Room Air 01/20/24 08:12 O2 Flow Rate 2 01/19/24 17:29 01/19/24 01/20/24 01/20/24 22:59 06:59 14:59 Intake Total 500 / 500 2696.667 / 3196.667 1166.808 / 1166.808 Output Total 400 / 400 1000 / 1400 Balance 100 / 100 1696.667 / 8589.045 9266.808 / 1166.808 Weight last 48 hrs Weight 109.497 kg Weight 108.182 kg Weight 108.862 kg Physical Exam 2 Narrative: Awake and alert Morbidly beast -[place] Chest pain free Pleasant cooperative Abdomen soft GCS 15 Of nonfocal neuroexam Normotensive Currently on room air Data 01/20/24 04:02 01/20/24 04:02 Micro: Microbiology 01/19/24 20:24 Blood Culture - Preliminary Blood SPECIMEN COLLECTED 01/19/24 20:18 Blood Culture - Preliminary Blood SPECIMEN COLLECTED A&P Assessment and plan (1) Hypertensive emergency: (2) ST elevation myocardial infarction (STEMI): (3) Hematemesis: (4) Elevated serum creatinine: (5) HANNAH (acute kidney injury): (6) Metabolic acidosis: (7) Hypercalcemia: (8) Leukocytosis: (9) Tobacco use disorder: Plan Hypertensive emergency Blood pressure is better today Optimize antihypertensive regimen STEMI code was called status post cath nonobstructive coronary disease Odynophagia with hematemesis CT abdomen pelvis was done because of positive calcium oxalate crystals No signs of stones HANNAH Monitor for contrast-induced nephropathy Creatinine improving with IV fluid hydration General surgery consulted for EGD today Leukocytosis: Stress related:? Improving Hypercalcemia: Improved with IV fluid hydration Continue abdominal pain hypertension and hypercalcemia will check PTH Medicine team will follow along Patient may be able to go home over the weekend Attestations 2 Medical Necessity Statement*: Continue medical management can be transferred out of ICU Diagnoses Hypertensive emergency I16.1 ST elevation myocardial infarction (STEMI) I21.3 Hematemesis K92.0 Elevated serum creatinine R79.89 HANNAH (acute kidney injury) N17.9 Metabolic acidosis E87.20 Hypercalcemia E83.52 Leukocytosis D72.829 Tobacco use disorder F17.200
--- NOTE | 2024-01-20 12:51 | ANE.PACU2 ---
Inpatient post-anesthesia follow up: Airway intact: Yes Vital signs: Temperature 98.9 F Pulse Rate 84 Respiratory Rate 18 Blood Pressure 126/82 Pulse Oximetry 98 Oxygen Delivery Me thod [ Room Air Current Rate & Del faith] Oxygen Delivery Me thod Room Air Oxygen Flow Rate 2 Fraction of Inspir ed Oxygen Hydration adequate: Yes Nausea and vomiting: No Pain level: 1 Mental status: Baseline
--- NOTE | 2024-01-20 12:59 | PC.NURSE ---
Back in room from GI lab, family at bedside
[2024-01-20] MEDS: sodium chloride 0.9% 1,000 ML 100 ML IV ×2 (13:40→22:37)
[2024-01-20] MEDS: hyDRALAzine 10 mg Tablet PO ×2 (14:19→20:02)
[2024-01-20 14:20] LABS: D Dimer 1.09 ug/mLFEU (0-0.59)
--- NOTE | 2024-01-20 15:30 | PC.NURSE ---
on CSU at this time
--- NOTE | 2024-01-20 15:51 | PC.NURSE ---
pt refused hair catheter insertion educated that we order placed to measure accurate I and O by hair insertion. pt refused insertion. urinal provided.
[2024-01-20 16:03] LABS: Calcium 8.8 mg/dL (8.5-10.5); Parathyroid Hormone 52.4 pg/mL (15-65)
[2024-01-20 16:04] LABS: Thyroid Stimulating Hormone 0.65 uIU/mL (0.27-4.20)
[2024-01-20 16:05] LABS: Estmated Average Glucose 111; Hemoglobin A1C 5.5 % (4.0-6.0)
[2024-01-20] MEDS: acetaminophen 325 mg Tablet 650 MG PO (20:02)
[2024-01-20] MEDS: ALPRAZolam 0.5 mg Tablet 0.25 MG PO (20:04)
[2024-01-21] VITALS (19 sets, daily range): BP systolic 121–170; BP diastolic 69–104; PULSE 69–99; RESP 13–20; TEMP 36.7–37.5; O2SAT 96–100
[2024-01-21 03:53] LABS: Lactic Sepsis W/Reflex 0.9 mmol/L (0.5-2.2)
[2024-01-21 04:11] LABS: Basophils # 0.1 10^3/uL (0.0-0.1); Basophils % 0.2 %; Hematocrit 43.4 % (37-53); Lymphocytes # 4.1 10^3/uL (0.8-4.8); Lymphocytes % 16.8 %; Mean Corpuscular HGB Conc 33.4 g/dL (30-55); Mean Corpuscular Hemoglobin 30.5 pg (27-33); Mean Corpuscular Volume 91.4 fl (82-101); Mean Platelet Volume 9.8 fL (7.4-10.4); Monocytes # 2.3 10^3/uL (0.2-0.9); Monocytes % 9.5 %; Neutrophils # 17.83 10^3/uL (1.8-7.7); Neutrophils % 73.1 %; Nucleated Red Blood Cells % 0 %; Platelet Count 324 10^3/cmm (157-399); Red Blood Count 4.75 10^6/uL (3.85-5.65); Red Cell Distribution Width 12.6 % (12.1-15.1); White Blood Count 24.43 10^3/uL (3.29-11.43)
[2024-01-21 04:14] LABS: Blood Urea Nitrogen 10 mg/dL (6-20); Calcium 8.6 mg/dL (8.5-10.5); Carbon Dioxide 20 mmol/L (22-29); Chloride 107 mmol/L (98-107); Creatinine Clr Calc Pharmacy 115.7243; Glomerular Filtration Rate 92.2 mL/min (90-130); Glucose 95 mg/dL (65-115); Osmolality Calculated 293 mOsm/kg (285-295); Sodium 142 mmol/L (136-145)
[2024-01-21 04:15] LABS: Anion Gap 19.3 (5-19); Potassium 4.3 mmol/L (3.5-5.1)
[2024-01-21 04:32] LABS: Creatine Phosphokinase 3627 U/L (39-308)
[2024-01-21] MEDS: acetaminophen 325 mg Tablet 650 MG PO ×3 (05:10→20:06)
[2024-01-21] MEDS: ALPRAZolam 0.5 mg Tablet 0.25 MG PO ×2 (05:13→20:08)
[2024-01-21] MEDS: hyDRALAzine 10 mg Tablet PO (05:38)
--- NOTE | 2024-01-21 05:38 | PC.NURSE ---
Patient BP was 150/104. Dr Ceja was notified and gave orders to give 0900 dose of hydralazine.
[2024-01-21] MEDS: sucralfate 1 gm/10 mL Oral Liq UDC PO ×4 (07:17→20:06)
--- NOTE | 2024-01-21 08:11 | P.PN_ITS ---
Subjective 2 Subjective: Patient was admitted 2 days ago with hypertensive emergency, chest pain, abnormal EKG suggesting a STEMI. He was taken to the catheterization laboratory and found to have normal coronaries. His echo was normal. His apex appeared slightly abnormal on some views but not all. His creatinine was initially 2.3 and is now 1.1. Troponins did trend upward with the initial troponin of 22, 2- hour troponin 109 and 6-hour troponin 506. He also had an episode of hematemesis. He underwent endoscopy which revealed esophagitis. His toxicology screen was positive for opiates and THC. He is a smoker. His blood pressure is still high on occasion. This morning it is 166/101. He is comfortable this morning and is asleep. Vitals/I&O/Wt Last Vital Signs Temp 98.2 F 01/21/24 08:00 Pulse 92 01/21/24 08:00 Resp 15 01/21/24 08:00 BP 166/101 01/21/24 08:00 Pulse Ox 98 01/21/24 08:00 O2 Del Method Room Air 01/21/24 08:00 O2 Flow Rate 2 01/19/24 17:29 01/20/24 01/21/24 01/21/24 22:59 06:59 14:59 Intake Total 895 / 2395.000 450 / 2845.000 Output Total 2250 / 2250 1250 / 3500 Balance -1355 / 145.000 -800 / -655.000 Weight last 48 hrs Weight 247 lb 4.8 oz Weight 241 lb 6.4 oz Weight 238 lb 8 oz Weight 240 lb Physical Exam 2 Narrative: GENERAL: In general he is comfortable HEENT: Exam within normal limits. NECK: Supple without jugular vein distention. The carotid upstroke is normal without bruits. BACK: Exam normal. LUNGS: Clear. HEART: Regular rate and rhythm. ABDOMEN: Benign without organomegaly or tenderness. EXTREMITIES: No edema. NEUROLOGIC: Exam normal. SKIN: Unremarkable. Data 01/21/24 04:05 01/21/24 03:05 Micro: Microbiology 01/19/24 20:24 Blood Culture - Preliminary Blood NEGATIVE TO DATE 01/19/24 20:18 Blood Culture - Preliminary Blood NEGATIVE TO DATE A&P Assessment and plan (1) Hypertensive emergency: (2) Tobacco use disorder: (3) Elevated troponin: (4) Hematemesis: (5) Elevated serum creatinine: Plan Cardiac status is stable. Most of this aside from the gastrointestinal issues was related to hypertensive emergency. His creatinine is back to normal. He may be discharged from a cardiac standpoint. His blood pressure is going to be the issue going forward. Attestations 2 Medical Necessity Statement*: Okay for discharge from cardiac standpoint and Moderate Time for a total of 30 minutes, includes reviewing past or interval history, examining/interviewing patient, counseling patient/family/other support, updating patient/family/other support, discussing plan of care with staff, communicating with other healthcare providers and documenting encounter Diagnoses Hypertensive emergency I16.1 Tobacco use disorder F17.200 Elevated troponin R79.89 Hematemesis K92.0 Elevated serum creatinine R79.89
[2024-01-21] MEDS: pantoprazole 40 mg SDV IVP ×2 (08:16→22:43)
[2024-01-21] MEDS: metoprolol tartrate 50 mg Tablet PO ×2 (08:17→20:10)
[2024-01-21] MEDS: amlodipine 5 mg Tablet 10 MG PO (08:17)
--- NOTE | 2024-01-21 08:34 | P.PN_ITS ---
Subjective 2 Subjective: Seen this morning, no acute events overnight. CPK 3600 this morning. Cleared by cardiology for discharge. Had a long discussion with the patient regarding his elevated white count. He says he has not seen a doctor in years. [facility] his last [facility] with [facility]. He does not recall having labs checked in the past. Denies a family history of any cancers or any other medical problems that he can remember. He says his mom had heart failure and does not have a history on his dad side. 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 Vitals/I&O/Wt Last Vital Signs Temp 98.2 F 01/21/24 08:00 Pulse 92 01/21/24 08:00 Resp 15 01/21/24 08:00 BP 166/101 01/21/24 08:00 Pulse Ox 98 01/21/24 08:00 O2 Del Method Room Air 01/21/24 08:00 O2 Flow Rate 2 01/19/24 17:29 01/20/24 01/21/24 01/21/24 22:59 06:59 14:59 Intake Total 895 / 2395.000 450 / 2845.000 961.667 / 961.667 Output Total 2250 / 2250 1250 / 3500 Balance -1355 / 145.000 -800 / -655.000 961.667 / 961.667 Weight last 48 hrs Weight 112.173 kg Weight 109.497 kg Weight 108.182 kg Weight 108.862 kg Physical Exam 2 Narrative: Awake and alert -Citizen Of [place] Chest pain free Pleasant cooperative Abdomen soft GCS 15 Of nonfocal neuroexam Normotensive Currently on room air Data 01/21/24 04:05 01/21/24 03:05 Micro: Microbiology 01/19/24 20:24 Blood Culture - Preliminary Blood NEGATIVE TO DATE 01/19/24 20:18 Blood Culture - Preliminary Blood NEGATIVE TO DATE A&P Assessment and plan (1) Hypertensive emergency: (2) ST elevation myocardial infarction (STEMI): (3) Hematemesis: (4) Elevated serum creatinine: (5) HANNAH (acute kidney injury): (6) Metabolic acidosis: (7) Hypercalcemia: (8) Leukocytosis: (9) Tobacco use disorder: Plan Hypertensive emergency?improved Blood pressure is better today Optimize antihypertensive regimen Will increase hydralazine to 25 3 times daily Continue amlodipine 10 daily Lopressor 50 twice daily STEMI status post cath Patient has nonobstructive coronary disease Odynophagia with hematemesis CT abdomen pelvis was done because of positive calcium oxalate crystals No signs of stones HANNAH Monitor for contrast-induced nephropathy Creatinine improving with IV fluid hydration CPK elevated at 3627: Continue IV fluids for another day. General surgery consulted for EGD. EGD completed. Leukocytosis: Stress related:? Unclear etiology of leukocytosis. Could possibly be chronic as well. Patient will need a peripheral smear further workup. Discussed with him regarding following up with hematology. There does not seem to be an infectious cause at this time. Had a long discussion with the patient. Patient is a smoker however leukocytosis out of proportion to etiology of smoking. Hypercalcemia: Improved with IV fluid hydration Continue abdominal pain hypertension and hypercalcemia will check PTH PTH 52.4. Check vitamin D 25-hydroxy Hypercalcemia has resolved with IV fluids. Medicine team will follow along I would recommend continued hospitalization secondary to persistent elevated leukocytosis, resolving HANNAH however rising CPK. Patient will need continued IV hydration for another 24 to 48 hours. Will trend CPK. I have also recommended patient hematology referral at discharge for further workup of persistent leukocytosis. Attestations 2 Medical Necessity Statement*: Requires continued hospitalization for IV fluid hydration Diagnoses Hypertensive emergency I16.1 ST elevation myocardial infarction (STEMI) I21.3 Hematemesis K92.0 Elevated serum creatinine R79.89 HANNAH (acute kidney injury) N17.9 Metabolic acidosis E87.20 Hypercalcemia E83.52 Leukocytosis D72.829 Tobacco use disorder F17.200
[2024-01-21] MEDS: sodium chloride 0.9% 1,000 ML 75 ML IV (12:57)
[2024-01-21] MEDS: hyDRALAzine 10 mg Tablet 25 MG PO ×2 (13:04→20:06)
[2024-01-21 19:16] LABS: HIV 1 & 2 Antibody Non-Reactive (Non-Reactiv); HIV 1 & 2 Antigen Non-Reactive (Non-Reactiv)
--- NOTE | 2024-01-21 20:16 | P.PN_ITS ---
Subjective 2 Subjective: chest pain gone Vitals/I&O/Wt Last Vital Signs Temp 98.0 F 01/21/24 11:34 Pulse 83 01/21/24 19:00 Resp 16 01/21/24 19:00 BP 144/86 01/21/24 19:00 Pulse Ox 99 01/21/24 19:00 O2 Del Method Room Air 01/21/24 11:34 O2 Flow Rate 2 01/19/24 17:29 01/21/24 01/21/24 01/21/24 06:59 14:59 22:59 Intake Total 450 / 2845.000 1321.667 / 1321.667 Output Total 1250 / 3500 850 / 850 400 / 1250 Balance -800 / -655.000 471.667 / 471.667 -400 / 71.667 Weight last 48 hrs Weight 247 lb 4.8 oz Weight 241 lb 6.4 oz Physical Exam 2 Narrative: Patient is a well developed well nourished and in NAD and is afebrile with vitals stable and is answering questions appropriately with a normal affect and is alert and oriented x3 HEENT: normocephalic with normal external ears and nonicteric, oral mucosa moist and dentition normal for age, trachea midline with no large masses visualized Heart: RRR, no gallops murmurs or rubs, normal PMI with no thrills Lungs: normal excursions, no loud audible wheezing, no subcutaneous emphysema Abdomen: nondistended, no gross hepatosplenomegaly, no masses, no rigidity or rebound, no loud borborygmi Neuro: nonfocal, DIAZ, grossly normal sensation Musculoskeletal: good muscle tone, no fasciculations, normal gait Skin: pink warm and dry with no rashes or ecchymosis Vascular: good radial pulses, no ulceration, less than 2 second capillary refill in hand : deferred Data 01/21/24 04:05 01/21/24 03:05 Micro: Microbiology 01/19/24 20:24 Blood Culture - Preliminary Blood NEGATIVE TO DATE 01/19/24 20:18 Blood Culture - Preliminary Blood NEGATIVE TO DATE A&P Assessment and plan (1) Hematemesis: Plan No further episodes of hematemesis. He knows to stay away from citric acid in orange juice, lemonade, pineapple juice, sodas and stay away from sodas with phosporic acid like cokes or citric acid like sprite. He is avoid excessive caffeine and coffee. He needs to be on bland diet and avoid aspirin/NSAID/ steroids. He needs to stop smoking and stop drinking alcohol. He needs to avoid spicy food and be on bland diet. He needs to avoid taking acidic pills like potassium, iron tectracycline, and alendronate. He needs to take full glass of water with medication and consider crushing or getting liquid form and not to lie down for at least 1 hour from taking medication. He needs to be on PPI and carafate for 6-8 weeks and perform reflux precautions especially at night. Attestations 2 Medical Necessity Statement*: see attendings note Coding Level of Care Code 94005 Diagnoses Hematemesis K92.0
[2024-01-21 22:17] LABS: Hepatitis A Antibody IgM Non-Reactive (Nonreactive); Hepatitis B Core AB, Total Non-Reactive (Nonreactive); Hepatitis B Surface Antigen Non-Reactive (Nonreactive); Hepatitis C Virus Antibody Non-Reactive (Nonreactive)
[2024-01-21] MEDS: temazepam 15 mg Capsule PO (22:43)
[2024-01-22] VITALS (10 sets, daily range): BP systolic 134–138; BP diastolic 82–103; PULSE 57–82; RESP 13–19; TEMP 36.7–37.3; O2SAT 96–98; BMI 35.9
[2024-01-22] MEDS: magnesium hydroxide 30 mL UDC PO (00:18)
[2024-01-22] MEDS: ketorolac 30 mg/mL INJ 15 MG IVP (00:18)
--- NOTE | 2024-01-22 01:23 | PC.NURSE ---
Patient stated that tylenol was not helping headache. Dr Ceja was notified and new orders given.
[2024-01-22 03:03] LABS: Basophils # 0.1 10^3/uL (0.0-0.1); Basophils % 0.4 %; Eosinophils # 0.1 10^3/uL (0.0-0.8); Eosinophils % 0.6 %; Hematocrit 44.1 % (37-53); Lymphocytes # 5.5 10^3/uL (0.8-4.8); Lymphocytes % 28.5 %; Mean Corpuscular HGB Conc 32.7 g/dL (30-55); Mean Corpuscular Hemoglobin 29.9 pg (27-33); Mean Corpuscular Volume 91.7 fl (82-101); Mean Platelet Volume 10.2 fL (7.4-10.4); Monocytes % 10.1 %; Neutrophils # 11.54 10^3/uL (1.8-7.7); Nucleated Red Blood Cells % 0 %; Platelet Count 316 10^3/cmm (157-399); Red Blood Count 4.81 10^6/uL (3.85-5.65); Red Cell Distribution Width 12.3 % (12.1-15.1); White Blood Count 19.22 10^3/uL (3.29-11.43)
[2024-01-22 03:19] LABS: Anion Gap 16.2 (5-19); Blood Urea Nitrogen 11 mg/dL (6-20); Calcium 8.7 mg/dL (8.5-10.5); Carbon Dioxide 24 mmol/L (22-29); Chloride 104 mmol/L (98-107); Creatinine Clr Calc Pharmacy 115.7243; Glomerular Filtration Rate 92.2 mL/min (90-130); Glucose 104 mg/dL (65-115); Osmolality Calculated 290 mOsm/kg (285-295); Potassium 4.2 mmol/L (3.5-5.1); Sodium 140 mmol/L (136-145)
[2024-01-22] MEDS: sodium chloride 0.9% 1,000 ML 75 ML IV (03:22)
[2024-01-22 03:40] LABS: Creatine Phosphokinase 3372 U/L (39-308)
[2024-01-22] MEDS: sucralfate 1 gm/10 mL Oral Liq UDC PO ×2 (06:53→10:57)
--- NOTE | 2024-01-22 07:43 | P.PN_ITS ---
Subjective 2 Subjective: Patient is awake and alert this morning. He states he feels fine. He would like to go home. His blood pressure is improved this morning 136/83. He has no more chest pain. Vitals/I&O/Wt Last Vital Signs Temp 99.1 F 01/22/24 04:00 Pulse 72 01/22/24 05:48 Resp 15 01/22/24 04:00 BP 136/83 01/22/24 04:00 Pulse Ox 97 01/22/24 04:00 O2 Del Method Room Air 01/21/24 11:34 O2 Flow Rate 2 01/19/24 17:29 01/21/24 01/22/24 01/22/24 22:59 06:59 14:59 Intake Total 1400 / 2721.667 Output Total 950 / 1800 Balance -950 / -294.199 2378 / 921.667 Weight last 48 hrs Weight 243 lb Weight 247 lb 4.8 oz Physical Exam 2 Narrative: GENERAL: In general he is comfortable at rest HEENT: Exam within normal limits. NECK: Supple without jugular vein distention. The carotid upstroke is normal without bruits. BACK: Exam normal. LUNGS: Clear. HEART: Regular rate and rhythm. ABDOMEN: Benign without organomegaly or tenderness. EXTREMITIES: No edema. NEUROLOGIC: Exam normal. SKIN: Unremarkable. Data 01/22/24 02:35 01/22/24 02:35 A&P Assessment and plan (1) Hypertensive emergency: (2) Tobacco use disorder: (3) Elevated troponin: (4) Hematemesis: (5) Elevated serum creatinine: Plan He is stable. Okay to discharge from my standpoint. The phillip is blood pressure control. He lives in [place] so should follow-up there. Attestations 2 Medical Necessity Statement*: Okay for discharge today and Moderate Time for a total of 30 minutes, includes reviewing past or interval history, examining/interviewing patient, counseling patient/family/other support, updating patient/family/other support, discussing plan of care with staff, communicating with other healthcare providers and documenting encounter Diagnoses Hypertensive emergency I16.1 Tobacco use disorder F17.200 Elevated troponin R79.89 Hematemesis K92.0 Elevated serum creatinine R79.89
[2024-01-22] MEDS: metoprolol tartrate 50 mg Tablet PO (08:44)
[2024-01-22] MEDS: amlodipine 5 mg Tablet 10 MG PO (08:44)
[2024-01-22] MEDS: hyDRALAzine 10 mg Tablet 25 MG PO (08:45)
[2024-01-22] MEDS: pantoprazole 40 mg SDV IVP (10:57)
--- NOTE | 2024-01-22 11:02 | P.CONIM_ITS ---
Providers/Reason For Consult 2 Consulting Physician/Specialty*: Loyd Rodriguez md / telenephrology Reason for Consult*: rhbdomyolysis Requesting Physician: DR George Khanna Attending Physician: Neil Alexander M.D History of Present Illness History of Present Illness Louis Brannon is a 33 year old male who was admitted to the hospital January 19, 2024 as he felt weak cramps some abdomen typical chest pain and volume depletion. The patient had acute kidney injury ST elevation ID very high hemoglobin. The patient went to the Owner Professional Engineer that was negative. He had an echo showing an LV systolic function of 55 to 60%. He had a leukocytosis he had increased anion gap metabolic acidosis with bicarb of 15 lactate of 2.5 hypercalcemia on admission and received morphine without response. Please note the blood pressure was high as 183/123 on admission and cardiology felt that his initial presentation was consistent with hypertensive emergency. Unfortunately post cardiac catheterization he developed hematemesis and he had an EGD showing reflux esophagitis his antiplatelet agents were stopped and he was put on omeprazole and Carafate. His CPK was elevated he was given IV fluids and his creatinine has been improving however his CK remains elevated and renal was asked to see the patient. His CPK was 595 on admission, 3627 yesterday 3372 today. Review of Systems 2 Narrative: He states he is feeling better. He no longer has headaches he no longer has nausea vomiting shortness of breath chest pain no difficulty urinating. He does state that he does smoke. He worked out prior to admission he normally does not exercise much but needed to for his work. He has no hearing or seeing difficulty and rest review of systems within normal limits Medications/Allergies Home Medications Medication Instructions Recorded Confirmed Last Taken Type No Known Home Medications 01/20/24 01/20/24 Unknown History Allergies Allergy/AdvReac Type Severity Reaction Status Date / Time No Known Allergies Allergy Verified 01/19/24 17:25 Current Medications Generic Name Dose Route Start Last Admin Trade Name Freq PRN Reason Stop Dose Admin Acetaminophen 650 mg 01/19/24 19:05 01/21/24 20:06 Acetaminophen 325 Mg Tablet PO 650 mg Q6H PRN Administration MILD PAIN Alprazolam 0.25 mg 01/19/24 19:05 01/21/24 20:08 Alprazolam 0.5 Mg Tablet PO 0.25 mg TID PRN Administration ANXIETY Amlodipine Besylate 10 mg 01/21/24 09:00 01/22/24 08:44 Amlodipine 5 Mg Tablet PO 10 mg DAILY MARGARET Administration Fentanyl 50 mcg 01/19/24 19:05 01/20/24 10:41 Fentanyl 50 Mcg/Ml Inj 2ml IVP 50 mcg PRN PRN Administration Pain Hydralazine HCl 25 mg 01/21/24 15:00 01/22/24 08:45 Hydralazine 10 Mg Tablet PO 25 mg TID MARGARET Administration Sodium Chloride 1,000 mls @ 75 mls/hr 01/21/24 12:30 01/22/24 03:22 Sodium Chloride 0.9% IV 75 mls/hr .[id number] MARGARET Administration Magnesium Hydroxide 30 ml 01/19/24 19:05 01/22/24 00:18 Magnesium Hydroxide 30 Ml Udc PO 30 ml DAILY PRN Administration CONSTIPATION Metoprolol Tartrate 50 mg 01/20/24 09:00 01/22/24 08:44 Metoprolol Tartrate 50 Mg Tablet PO 50 mg BID@0900,2100 MARGARET Administration Ondansetron HCl 4 mg 01/20/24 00:25 01/20/24 07:35 Ondansetron 2 Mg/Ml Sdv 2 Ml IVP 4 mg Q8H PRN Administration NAUSEA AND VOMITING Pantoprazole Sodium 40 mg 01/20/24 10:15 01/22/24 10:57 Pantoprazole 40 Mg Sdv IVP 40 mg Q12H MARGARET Administration Sucralfate 1 gm 01/20/24 11:00 01/22/24 10:57 Sucralfate 1 Gm/10 Ml Oral Liq Udc PO 1 gm AC&BEDTIME MARGARET Administration Temazepam 15 mg 01/19/24 19:05 01/21/24 22:43 Temazepam 15 Mg Capsule PO 15 mg BEDTIME PRN Administration INSOMNIA PFSH Acute 2 PFSH: Medical History (Updated 01/20/24 @ 11:26 by Shawn Corbett MD) Tobacco use disorder Surgical History (Updated 01/19/24 @ 21:03 by Thang Ceja MD) No pertinent past surgical history Family History (Updated 01/19/24 @ 21:03 by Thang Ceja MD) Mother CAD (coronary artery disease) Social History (Updated 01/19/24 @ 21:04 by Thang Ceja MD) Smoking and tobacco/nicotine status: current every day tobacco/nicotine user Alcohol intake: never Substance/Drug Use: never Additional social history: 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 Lives in [place]. . Vitals/I&O/Wt Last Vital Signs Temp 98.2 F 01/22/24 07:52 Pulse 72 01/22/24 10:00 Resp 19 H 01/22/24 07:52 BP 136/90 01/22/24 07:52 Pulse Ox 98 01/22/24 10:00 O2 Del Method Room Air 01/22/24 10:00 O2 Flow Rate 2 01/19/24 17:29 01/21/24 01/22/24 01/22/24 22:59 06:59 14:59 Intake Total 1400 / 2721.667 240 / 240 Output Total 950 / 1800 Balance -950 / -533.232 9218 / 921.667 240 / 240 Weight last 48 hrs Weight 110.223 kg Weight 112.173 kg Physical Exam 2 Narrative: No apparent distress overweight in bed blood pressure much improved. HEENT normocephalic atraumatic. Neck is supple no JVP lungs have good air movement. Heart regular no rubs or gallops. Abdomen is soft positive bowel sounds Extremities have no edema. Data 01/22/24 02:35 01/22/24 02:35 A&P Assessment and plan (1) Hypertensive emergency: 33-year-old gentleman 1. Hypertensive emergency blood pressure much improved. Currently he is on amlodipine 10 mg daily, hydralazine 25 3 times daily metoprolol 50 twice daily. I will try to put the patient on an ARB. And try to put him on combination medications may be easier for medication compliance on discharge. However ensure that he can get these medications at the [facility]. 2. Acute kidney injury from volume depletion has improved. On discharge consider sending September genetic testing. 3. Metabolic acidosis patient had positive ketones likely from starvation on admission has improved 4. Rhabdomyolysis could have been due to a recent virus which may explain his volume depletion and him not feeling well however his CK has been getting higher in the hospital not improving I asked the patient if he takes any drugs as they can cause rhabdomyolysis also recent viruses can cause rhabdomyolysis. He did not have significant immobility. He denies nutritional supplements containing ephedra creatine or large doses of caffeine denies dietary supplements however he does smoke. No recent seizures. He denies any muscle aches or myositis. At this time would repeat CPK as long as it is improving then patient can be discharged with outpatient follow-up. Patient advised to avoid statins. Also to avoid his antibiotics at this time avoid NSAIDs. To drink lots of fluids. And repeat CK within a couple days. The patient was seen and examined using A/V equipment. The patient consented to a telehealth visit. The nurse examined the patient and help me perform history and physical. Plan See above. Consult Attestations 2 Medical Necessity Statement: As per hospitalist. Time Spent in Patient Care: Greater than 35 minutes (>than 50% of time spent in counselling and/or direct pt care on unit) . Coding Level of Care Code Acute Code for Chg Fwd Diagnoses Hypertensive emergency I16.1
[2024-01-22 12:10] LABS: Uric Acid 4.6 mg/dL (3.4-7.0)
[2024-01-22 12:45] LABS: Creatine Phosphokinase 2769 U/L (39-308)
--- NOTE | 2024-01-22 12:51 | PM.PN ---
Subjective Subjective: Seen this morning. CPK trending down. Nephrology consult appreciated. Vitals/I&O/Wt Last Vital Signs Temp 98.0 F 01/22/24 12:00 Pulse 57 L 01/22/24 12:00 Resp 13 01/22/24 12:00 BP 138/82 01/22/24 12:00 Pulse Ox 97 01/22/24 12:00 O2 Del Method Room Air 01/22/24 12:00 O2 Flow Rate 2 01/19/24 17:29 01/21/24 01/22/24 01/22/24 22:59 06:59 14:59 Intake Total 1400 / 2721.667 240 / 240 Output Total 950 / 1800 Balance -950 / -271.836 1057 / 921.667 240 / 240 Weight last 48 hrs Weight 110.223 kg Weight 112.173 kg Physical Exam Narrative: Awake and alert -Irish Chest pain free Pleasant cooperative Abdomen soft GCS 15 Of nonfocal neuroexam Normotensive Currently on room air Data 01/22/24 02:35 01/22/24 02:35 A&P Assessment and plan (1) Hypertensive emergency: (2) ST elevation myocardial infarction (STEMI): (3) Hematemesis: (4) Elevated serum creatinine: (5) HANNAH (acute kidney injury): (6) Metabolic acidosis: (7) Hypercalcemia: (8) Leukocytosis: (9) Tobacco use disorder: Plan Hypertensive emergency?improved Blood pressure is better today Optimize antihypertensive regimen Will increase hydralazine to 25 3 times daily Continue amlodipine 10 daily Lopressor 50 twice daily STEMI status post cath Patient has nonobstructive coronary disease Odynophagia with hematemesis CT abdomen pelvis was done because of positive calcium oxalate crystals No signs of stones HANNAH Monitor for contrast-induced nephropathy Creatinine improving with IV fluid hydration CPK elevated at 3627: Continue IV fluids for another day. General surgery consulted for EGD. EGD completed. Leukocytosis: Stress related:? Unclear etiology of leukocytosis. Could possibly be chronic as well. Patient will need a peripheral smear further workup. Discussed with him regarding following up with hematology. There does not seem to be an infectious cause at this time. Had a long discussion with the patient. Patient is a smoker however leukocytosis out of proportion to etiology of smoking. Hypercalcemia: Improved with IV fluid hydration Continue abdominal pain hypertension and hypercalcemia will check PTH PTH 52.4. Check vitamin D 25-hydroxy Hypercalcemia has resolved with IV fluids. Medicine team will follow along Today's plan 01/21 Leukocytosis improving, CPK improving Patient recommended to follow-up with primary care doctor after he gets back to [place]. He has been advised to drink lots of fluids. He has been seen by nephrology. Patient may be discharged from medical standpoint. Cardiology is primary on the case. Also discussed with him regarding seeing a safety and skill based pay manager if leukocytosis does not improve in the next week. Recommended to have outpatient labs repeated and have CBC and CPK rechecked within a week and follow-up with PCP. Attestations Medical Necessity Statement*: Defer to primary team Diagnoses Hypertensive emergency I16.1 ST elevation myocardial infarction (STEMI) I21.3 Hematemesis K92.0 Elevated serum creatinine R79.89 HANNAH (acute kidney injury) N17.9 Metabolic acidosis E87.20 Hypercalcemia E83.52 Leukocytosis D72.829 Tobacco use disorder F17.200
[2024-01-22 12:58] LABS: Bilirubin Urine Negative (Negative); Blood Urine Negative (Negative); Glucose Urine UA Negative (Normal); Ketones Urine Trace (Negative); Leukocyte Esterase Urine 1+ (Negative); Nitrate Urine Negative (Negative); Protein Urine Trace (Negative); Specific Gravity, Urine 1.019 (1.005-1.030); Urine Appearance Clear (CLEAR); Urine Color Yellow (Yellow)
[2024-01-22 13:03] LABS: Bacteria Urine None Seen /hpf; Hyaline Casts Urine 0-4 /lpf; RBC Urine 0-2 /hpf (0-2); Squamous Epithelial Cell Urine 0-5 /hpf (0-5); WBC Urine 21-50 /hpf (0-5)
[2024-01-22 13:05] LABS: Add Urine Culture? Yes; Amphetamines Screen Urine Negative (Negative); Barbiturates Screen Urine Negative (Negative); Benzodiazepines Screen Urine Positive (Negative); Cocaine Screen Urine Negative (Negative); Opiate Screen Urine Positive (Negative); PCP Screen Urine Negative (Negative); THC Screen Urine Positive (Negative)
--- NOTE | 2024-01-22 13:55 | P.DS_ITS ---
Discharge Providers Date of Admission: 01/19/24 17:58 Date of Discharge: January 22, 2024 Attending Provider at Admission: Neil Alexander M.D Attending Provider at Discharge: Neil Alexander M.D Diagnoses at Discharge Discharge Diagnosis (1) Hypertensive emergency: Status: Acute (2) ST elevation myocardial infarction (STEMI): Status: Acute (3) Hematemesis: Status: Acute (4) Elevated serum creatinine: Status: Acute (5) HANNAH (acute kidney injury): Status: Acute (6) Metabolic acidosis: Status: Acute (7) Hypercalcemia: Status: Acute (8) Leukocytosis: Status: Acute (9) Tobacco use disorder: Status: Acute (10) Rhabdomyolysis: Status: Acute (11) Esophagitis: Status: Acute (12) Elevated troponin: Status: Acute Reason for Visit Reason for Visit: stemi alert Brief History: 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 He lives in [place]. He was loading or unloading his truck the other night and it was hot humid and he may have been slightly dehydrated. He began to feel poorly with nausea and chest pain. He was brought to the emergency room by ambulance. His EKG suggested ST segment elevation in the anterior precordial leads. One of my colleagues was on-call and responded to a STEMI alert. He was taken to the catheterization laboratory urgently. Hospital Course Hospital Course Fortunately, his coronary arteries were unremarkable. His troponin was elevated however the initial was 22, #2 was 109 and the third 506. He was very hypertensive with blood pressures in the 240/120 range upon his arrival. His toxicology screen was positive for opiates and THC. He developed acute kidney injury. His initial creatinine was 2.3. By the time of discharge it is 1.1. His echo was essentially normal. He is a smoker. His blood pressure was high throughout the hospitalization. Hydralazine, amlodipine and a beta-juan antonio were added. He is normotensive at the time of discharge. Angiogram was done through the right groin. At the time of discharge the entry site is flat, dry without bleeding or hematoma or pulsatile mass. He also developed hematemesis. Surgery was consulted and performed endoscopy. They found esophagitis. He was placed on proton pump inhibitor and Carafate. He had leukocytosis which was persistent throughout his hospital stay. No evidence of infection was found. His CPK was also elevated. The initial CPK was 595. The maximum CPK was 3627. It was trending downward upon discharge it was 2769. On the day of discharge the hospitalist requested nephrology to see him. By then his CPK is trending downward and his creatinine is back within normal range. He will be sent home on amlodipine, Lopressor, hydralazine, Carafate and Protonix. He was not on any medication when he came in. We will give him 30 days worth of medication when he leaves here. His pharmacy will be the [place] [facility]. We will have to contact them tomorrow to put in a prescription so they can mail him his extended use medications. I expressed the importance of controlling his blood pressure for future good health. He should be able to go back to work once he gets home and gets settled for a couple of days. Physical Exam Narrative: GENERAL: In general he looks and feels well HEENT: Exam within normal limits. NECK: Supple without jugular vein distention. The carotid upstroke is normal without bruits. BACK: Exam normal. LUNGS: Clear. HEART: Regular rate and rhythm. ABDOMEN: Benign without organomegaly or tenderness. EXTREMITIES: No edema. The right groin catheterization entry site is flat, dry without hematoma or bleeding or pulsatile mass. NEUROLOGIC: Exam normal. SKIN: Unremarkable. Discharge Data Studies Completed and Pending Completed Studies During Hospitalization Category Date Time Status CT abdomen pelvis wo con [id number] Routine Cat Scan 01/20/24 08:[address] angio chest [id number] Routine Cat Scan 01/19/24 18:24 Completed XR chest 1V portable [id number] Stat Exams 01/19/24 17:09 Completed CV. echo complete* [id number] Stat Ultrasound 01/19/24 19:11 Completed Pending at discharge Category Date Time Status [employer] request for service Stat Exams 01/19/24 17:14 Taken Blood Culture Stat Lab 01/19/24 20:24 Results Chlamydia/Gonorrh RNA,TMA URO Routine Lab 01/21/24 20:18 Received Urine Culture Stat Lab 01/22/24 12:42 Received Radiology Impressions Chest X-Ray 01/19/24 17:09 IMPRESSION: No acute findings. Chest CTA 01/19/24 18:24 IMPRESSION: Negative for aortic dissection. No acute findings. Abdomen/Pelvis CT 01/20/24 08:51 IMPRESSION: 1. No hydronephrosis in either kidney. 2. Residual contrast in the renal collecting systems and bladder from recent contrast administration. 3. Small esophageal hiatal hernia with air-fluid level in the stomach. 4. Numerous tiny low-attenuation hepatic lesions compatible with cysts. Some of these are too small to definitively characterize. Laboratory Results WBC 19.22 10^3/uL (3.29-11.43) H 01/22/24 02:35 Corrected WBC Cancelled 01/21/24 03:05 RBC 4.81 10^6/uL (3.85-5.65) 01/22/24 02:35 Hgb 14.40 g/dL (11.27-16.99) 01/22/24 02:35 Hct 44.1 % (37-53) 01/22/24 02:35 MCV 91.7 fl (82-101) 01/22/24 02:35 MCH 29.9 pg (27-33) 01/22/24 02:35 MCHC 32.7 g/dL (30-55) 01/22/24 02:35 RDW 12.3 % (12.1-15.1) 01/22/24 02:35 Plt Count 316 10^3/cmm (157-399) 01/22/24 02:35 MPV 10.2 fL (7.4-10.4) 01/22/24 02:35 Gran % Cancelled 01/21/24 03:05 Neut % (Auto) 60.0 % 01/22/24 02:35 Lymph % (Auto) 28.5 % 01/22/24 02:35 Hall % (Auto) 10.1 % 01/22/24 02:35 Eos % (Auto) 0.6 % 01/22/24 02:35 Baso % (Auto) 0.4 % 01/22/24 02:35 Neut # (Auto) 11.54 10^3/uL (1.8-7.7) H 01/22/24 02:35 Lymph # (Auto) 5.5 10^3/uL (0.8-4.8) H 01/22/24 02:35 Hall # (Auto) 2.0 10^3/uL (0.2-0.9) H 01/22/24 02:35 Eos # (Auto) 0.1 10^3/uL (0.0-0.8) 01/22/24 02:35 Baso # (Auto) 0.1 10^3/uL (0.0-0.1) 01/22/24 02:35 Absolute Gran (auto) Cancelled 01/21/24 03:05 Nucleated RBC % (auto) 0 % 01/22/24 02:35 Nucleated RBCs # 0.0 /100WBC 01/22/24 02:35 D-Dimer 1.09 ug/mLFEU (0-0.59) H 01/20/24 13:32 Sodium 140 mmol/L (136-145) 01/22/24 02:35 Potassium 4.2 mmol/L (3.5-5.1) 01/22/24 02:35 Chloride 104 mmol/L (98-107) 01/22/24 02:35 Carbon Dioxide 24 mmol/L (22-29) 01/22/24 02:35 Anion Gap 16.2 (5-19) 01/22/24 02:35 BUN 11 mg/dL (6-20) 01/22/24 02:35 Creatinine 1.1 mg/dL (0.7-1.2) 01/22/24 02:35 GFR Calculation 92.2 mL/min (90-130) 01/22/24 02:35 Glucose 104 mg/dL (65-115) 01/22/24 02:35 Estimat Average Glucose 111 01/20/24 04:02 Hemoglobin A1c 5.5 % (4.0-6.0) 01/20/24 04:02 Calculated Osmolality 290 mOsm/kg (285-295) 01/22/24 02:35 Lactic Acid 0.9 mmol/L (0.5-2.2) 01/21/24 03:05 Lactate 2.5 mmol/L (0.5-2.2) H 01/19/24 20:18 Uric Acid 4.6 mg/dL (3.4-7.0) 01/22/24 11:45 Calcium 8.7 mg/dL (8.5-10.5) 01/22/24 02:35 Total Bilirubin 0.6 mg/dL (0.15-1.2) 01/19/24 17:05 AST 37 U/L (0-40) 01/19/24 17:05 ALT 31 U/L (0-41) 01/19/24 17:05 Alkaline Phosphatase 144 U/L (40-130) H 01/19/24 17:05 Creatine Kinase 2769 U/L (39-308) H* 01/22/24 11:45 Troponin T Baseline 22 ng/L (0-15) H 01/19/24 17:05 Troponin T 120 Minute 109.4 ng/L (0-15) H 01/19/24 19:18 Delta Troponin T 87.4 ABS# (0-10) H* 01/19/24 19:18 Troponin T Hi Sens 6Hr 506.0 ng/L (0-15) H 01/19/24 23:18 Troponin T Hi Sens 6Hr Delta 484.0 ng/L (0-12) H* 01/19/24 23:18 C-Reactive Protein 9.0 mg/L (0.0-4.9) H 01/19/24 19:18 Total Protein 9.5 g/dL (6.6-8.7) H 01/19/24 17:05 Albumin 5.4 g/dL (3.5-5.2) H 01/19/24 17:05 Globulin 4.1 g/dL (1.3-4.6) 01/19/24 17:05 Procalcitonin 0.08 ng/mL (0-0.5) 01/19/24 19:18 TSH 0.65 uIU/mL (0.27-4.20) 01/20/24 04:02 PTH Intact 52.4 pg/mL (15-65) 01/20/24 04:02 Calcium (PTH Intact) 8.8 mg/dL (8.5-10.5) 01/20/24 04:02 Urine Color Yellow (Yellow) 01/22/24 12:42 Urine Appearance Clear (CLEAR) 01/22/24 12:42 Urine pH 7.0 (5-7) 01/22/24 12:42 Ur Specific [place] 1.019 (1.005-1.030) 01/22/24 12:42 Urine Protein Trace (Negative) A 01/22/24 12:42 Urine Glucose (UA) Negative (Normal) 01/22/24 12:42 Urine Ketones Trace (Negative) 01/22/24 12:42 Urine Blood Negative (Negative) 01/22/24 12:42 Urine Nitrate Negative (Negative) 01/22/24 12:42 Urine Bilirubin Negative (Negative) 01/22/24 12:42 Urine Urobilinogen 1.0 mg/dL (Negative) 01/22/24 12:42 Ur Leukocyte Esterase 1+ (Negative) A 01/22/24 12:42 Urine RBC 0-2 /hpf (0-2) 01/22/24 12:42 Urine WBC 21-50 /hpf (0-5) H 01/22/24 12:42 Ur Squamous Epith Cells 0-5 /hpf (0-5) 01/22/24 12:42 Calcium Oxalate Crystal >100 /hpf H 01/19/24 19:40 Amorphous Sediment Not Reportable 01/22/24 12:42 Urine Bacteria None seen /hpf (NONE) 01/22/24 12:42 Hyaline Casts 0-4 /lpf H 01/22/24 12:42 Urine Opiates Screen Positive ng/mL (Negative) H 01/22/24 12:42 Ur Barbiturates Screen Negative ng/mL (Negative) 01/22/24 12:42 Ur Phencyclidine Scrn Negative ng/mL (Negative) 01/22/24 12:42 Ur Amphetamines Screen Negative ng/mL (Negative) 01/22/24 12:42 U Benzodiazepines Scrn Positive ng/mL (Negative) H 01/22/24 12:42 Urine Cocaine Screen Negative ng/mL (Negative) 01/22/24 12:42 U Marijuana (THC) Screen Positive ng/mL (Negative) H 01/22/24 12:42 Hepatitis A IgM Ab Non-reactive (Nonreactive) 01/21/24 18:29 Hep Bs Antigen Non-reactive (Nonreactive) 01/21/24 18:29 Hep Bs Antibody 101.0 (11.5-1000) 01/21/24 18:29 Hep B Core Total Ab Non-reactive (Nonreactive) 01/21/24 18:29 Hepatitis C Antibody Non-reactive (Nonreactive) 01/21/24 18:29 HIV 1&2 Ab & HIV 1 Ag Non-reactive (Non-Reactiv) 01/21/24 18:29 HIV 1&2 Antibody Non-reactive (Non-Reactiv) 01/21/24 18:29 Procedures Performed Coronary angiography, upper endoscopy Vitals Last Vital Signs Temp 98.0 F 01/22/24 12:00 Pulse 57 L 01/22/24 12:00 Resp 13 01/22/24 12:00 BP 138/82 01/22/24 12:00 Pulse Ox 97 01/22/24 12:00 O2 Del Method Room Air 01/22/24 12:00 O2 Flow Rate 2 01/19/24 17:29 Discharge Plan Discharge Patient Disposition: Home Condition: Stable Prescriptions: New metoprolol tartrate 50 mg Tablet 50 mg PO BID@0900,2100 Qty: 60 0RF hydralazine 10 mg Tablet 25 mg PO TID Qty: 90 0RF pantoprazole [Protonix] 40 mg tablet,delayed release (DR/EC) 40 mg PO DAILY 28 Days Qty: 30 0RF amlodipine 10 mg tablet 10 mg PO DAILY Qty: 30 0RF sucralfate [Carafate] 1 gram tablet 1 g PO Q6H 2 Days Qty: 120 0RF No Action No Known Home Medications Discharge Orders: Discharge Order (Routine); Ordered 01/22/24 Ordered By: Jose Hillman Discharge Diet: Usual diet and Cardiac Discharge Activity: Resume usual activity and Limit activity as instructed Patient Instructions: GI Discharge Instructions Activity Restrictions/Additional Instructions: Please have repeat CBC and CPK in 1 week and follow-up with your primary care doctor when you get back to [place]. No lifting over 5 pounds for 2 days Discharge Attestations Time Spent in Discharge Care*: greater than 30 min Quality Metrics Clinical Quality Measures [ No reported AMI, CVA or VTE this stay] Coding Level of Care Code 74111 Total time (in minutes) for Discharge: 70 Diagnoses Hypertensive emergency I16.1 ST elevation myocardial infarction (STEMI) I21.3 Hematemesis K92.0 Elevated serum creatinine R79.89 HANNAH (acute kidney injury) N17.9 Metabolic acidosis E87.20 Hypercalcemia E83.52 Leukocytosis D72.829 Tobacco use disorder F17.200 Rhabdomyolysis M62.82 Esophagitis K20.90 Elevated troponin R79.89
--- NOTE | 2024-01-22 16:42 | P.PN_ITS ---
Subjective 2 Subjective: No dysphagia or chest pain Vitals/I&O/Wt Last Vital Signs Temp 98.0 F 01/22/24 14:49 Pulse 57 L 01/22/24 14:49 Resp 13 01/22/24 14:49 BP 138/82 01/22/24 14:49 Pulse Ox 97 01/22/24 14:49 O2 Del Method Room Air 01/22/24 12:00 O2 Flow Rate 2 01/19/24 17:29 01/22/24 01/22/24 01/22/24 06:59 14:59 22:59 Intake Total 1400 / 2721.667 1240 / 1240 Balance 1400 / 068.759 0610 / 1240 Weight last 48 hrs Weight 243 lb Weight 247 lb 4.8 oz Physical Exam 2 Narrative: GENERAL: In general he looks and feels well HEENT: Exam within normal limits. NECK: Supple without jugular vein distention. The carotid upstroke is normal without bruits. BACK: Exam normal. LUNGS: Clear. HEART: Regular rate and rhythm. ABDOMEN: Benign without organomegaly or tenderness. EXTREMITIES: No edema. The right groin catheterization entry site is flat, dry without hematoma or bleeding or pulsatile mass. NEUROLOGIC: Exam normal. SKIN: Unremarkable. Data 01/22/24 02:35 01/22/24 02:35 A&P Assessment and plan (1) Esophagitis: Plan Patient needs PPI and carafate for 6-8 weeks Attestations 2 Medical Necessity Statement*: see attending note Coding Level of Care Code 19858 Diagnoses Esophagitis K20.90
[2024-01-23 16:00] LABS: Chlamydia Trachomatis RNA TMA DETECTED (NOT DETECTED); Neisseria Gonorrhoeae RNA, TMA NOT DETECTED (NOT DETECTED)
== END 2024-01-22 15:22 | disposition home or self-care (01) | DRG 286 ==
LOC: ER 17:41 → ICU 17:58 → CSU 01-20 15:30
PROVIDERS: Internal Medicine; Internal Medicine Nephrology; Specialist; Admitting Provider Internal Medicine; Emergency Provider Emergency Medicine; Visit Provider Internal Medicine
PROC: B2111ZZ Fluoroscopy of Multiple Coronary Arteries using Low Osmolar Contrast (ICD-10-PCS; principal; 2024-01-19 17:45)
PROC: 0DJ08ZZ Inspection of Upper Intestinal Tract, Via Natural or Artificial Opening Endoscopic (ICD-10-PCS; CPT 43235; principal; 2024-01-20 12:30)
DX: I16.1 Hypertensive emergency (principal); K21.01 Gastro-esophageal reflux disease with esophagitis, with bleeding; E87.20 Acidosis, unspecified; I24.89 Other forms of acute ischemic heart disease; N17.9 Acute kidney failure, unspecified; K92.0 Hematemesis; M62.82 Rhabdomyolysis; F17.210 Nicotine dependence, cigarettes, uncomplicated; E83.52 Hypercalcemia; E86.0 Dehydration
CPT/HCPCS: 36415; 71045; 71275; 74176; 80048; 80053; 80306; 81001; 82310; 82550; 83036; 83605; 83970; 84145; 84443; 84484; 84550; 85025; 85378; 86140; 86705; 86706; 86709; 86803; 87040; 87086; 87340; 87491; 87591; 87806; 93005; 93306; 93458; 96374; 96375; 99152; 99153; 99291; C1769; C1887; C1894; J0131; J0330; J0360; J1100; J1170; J1644; J1885; J2250; J2270; J2405; J2470; J2704; J3010; J3490; J7030; Q9967